=== PATIENT | female | born 1990 | race Caucasian/White ===

== ENCOUNTER 2016-03-28 18:26 | Emergency (ER) | payer OTHER ==
[~2016-03-28] VITALS: Ht 172.7 cm; Wt 71.2 kg
[~2016-03-28 18:26] MED LIST: ALBU1.25 NEB; BENZ100 PO; IPRA17I INH; LORA-392 PO; MONT10TA4 PO; PRED20 PO; ROBIDM5S PO; SYMB160A INH; VENTAER INH; ZITH250T PO
[2016-03-28 18:40] VITALS: BP 131/96; PULSE 90; RESP 16; TEMP 98.7; O2SAT 100
[2016-03-28] MEDS ORDERED: ORPHENADRINE INJ 60 MG/2 ML AMP IM ONE (19:00)
--- NOTE | 2016-03-28 20:08 | RADHPO ---
EXAM DATE/TIME: 03/28/2016 19:00 [place] COMPARISON: No previous studies available for comparison. INDICATIONS : Pain from fall. MEDICAL HISTORY : None. SURGICAL HISTORY : None. ENCOUNTER: Initial ACUITY: 1 day PAIN SCORE: 7/10 LOCATION: Right clavicle. FINDINGS: Two view examination of the right clavicle demonstrates mildly displaced distal clavicle fracture. No bony destructive changes. CONCLUSION: 1. Mildly displaced distal right clavicle fracture. Gus Pulliam MD on March 28, 2016 at 20:06 Board Certified Radiologist. This report was verified electronically.
[2016-03-28] MEDS ORDERED: PERC5TAB12 PO (20:17)
[2016-03-28] MEDS ORDERED: IBUP800T23 PO (20:28)
--- NOTE | 2016-03-28 20:28 | PD ---
HPI Chief Complaint: Injury Time Seen by Provider: 19:20 Travel History International Travel<30 days: No Contact w/Intl Traveler<30days: No Traveled to known affect area: No History of Present Illness HPI Patient is a 25 year old female who presented to emergency department for evaluation of right clavicle pain. Patient states she thinks she broke her clavicle after she fell onto her shoulder last night. She states it's painful to abduct her right arm. She has swelling above the right clavicle. She reports her pain 5/10 and took ibuprofen approximately 4 hours prior to arrival [facility] Past Medical History Asthma: Yes Anxiety: Yes (PATIENT STATES SHE SUFFERS FROM ANXIETY BUT HAS NEVER BEEN TREATED.) Depression: Yes (PATIENT STATES THAT SHE DAVID EASILY) Cancer: No Cardiovascular Problems: No Diminished Hearing: No Genitourinary: No Musculoskeletal: No Neurologic: No Psychiatric: Yes Reproductive: No Respiratory: Yes (asthma) Immunizations Current: Yes Tetanus Vaccination: < 5 Years Influenza Vaccination: No ?: Not LMP: 03/10/16 : 0 Para: 0 Miscarriage: 0 : 0 Past Surgical History Oral Surgery: Yes ("wisdom teeth") Social History Alcohol Use: Yes ("drink beer every day") Tobacco Use: No Substance Use: No Allergies-Medications (Allergen,Severity, Reaction): Coded Allergies: No Known Allergies (Verified , 03/28/16) Reported Meds & Prescriptions Reported Meds & Active Scripts Active No Active Prescriptions or Reported Medications Review of Systems Except as stated in HPI: all other systems reviewed are Neg Musculoskeletal: Positive: Myalgias, Arthralgias, Limited ROM, Edema Physical Exam Narrative GENERAL: Well-nourished, well-developed patient. SKIN: Warm and dry. HEAD: Normocephalic. EYES: No scleral icterus. No injection or drainage. NECK: Supple, trachea midline. No JVD or lymphadenopathy. CARDIOVASCULAR: Regular rate and rhythm without murmurs, gallops, or rubs. RESPIRATORY: Breath sounds equal bilaterally. No accessory muscle use. GASTROINTESTINAL: Abdomen soft, non-tender, nondistended. MUSCULOSKELETAL: No cyanosis, edema noted in the right supraclavicular area, decreased abduction of right arm. Positive radial pulse, persistent 3 second capillary refill. Tenderness to palpation right clavicle. BACK: Nontender without obvious deformity. No CVA tenderness. Data Data Last Documented VS Vital Signs Date Time Temp Pulse Resp B/P Pulse Ox O2 Delivery O2 Flow Rate FiO2 03/28/16 18:40 98.7 90 16 131/96 100 Orders Clavicle (03/28/16 ) Orphenadrine Inj (Norflex Inj) (03/28/16 19:00) Support Splint (03/28/16 20:16) MDM Medical Decision Making Medical Screen Exam Complete: Yes Emergency Medical Condition: Yes Interpretation(s) Vital Signs Date Time Temp Pulse Resp B/P Pulse Ox O2 Delivery O2 Flow Rate FiO2 03/28/16 18:40 98.7 90 16 131/96 100 Differential Diagnosis Fracture versus sprain versus strain versus dislocation versus other Narrative Course Patient is a 25-year-old female who presents emergency department for evaluation of a possible right clavicle fracture after falling onto her right shoulder last night. Patient is neurovascularly intact. Imaging revealed a mildly displaced distal right clavicle fracture. Patient will be placed in a sling. She will be provided with a prescription for pain medication. Patient is to follow-up with orthopedic surgeon, mandatory referral has been made orthopedic surgeon, patient does not have health insurance at this time. Patient is encouraged to return to emergency department for new or worsening symptoms or if she is unable to follow up with specialist. Patient verbalized understanding of instructions. Patient is stable for discharge. Diagnosis Primary Impression: Closed fracture of distal clavicle Qualified Code: S42.031A - Closed displaced fracture of acromial end of right clavicle, initial encounter Referrals: Roby Cueto MD 3 days Orthopaedic Surgeon 3 days Patient Instructions: Clavicle Fracture (ED), General Instructions Additional Instructions: Follow-up with orthopedic surgeon Take medications as directed, do not drive or operate heavy machinery while taking narcotic pain medications Keep right arm and splint Range of motion exercises for right elbow Return to emergency department for any new or worsening symptoms Med/Other Pt SpecificInfo: Prescription(s) given Scripts Ibuprofen 800 Mg [id number] Mg PO Q6HR PRN (PAIN) 10 Days Ref 0 Prov:Priya Rocha 03/28/16 Oxycodone-Acetaminophen (Percocet)5-325 mg Tab1 Tab PO Q6H PRN (PAIN) #15 TAB Ref 0 Prov:Bib Goel MD 03/28/16 Disposition: 01 DISCHARGE HOME Condition: Stable Priya Rocha Mar 28, 2016 20:28
[2016-03-28 20:37] VITALS: BP 128/92
== END 2016-03-28 20:39 | disposition home or self-care (01) ==
LOC: PHED 18:26 → PHEFT 20:39
DX: S42.031A Displaced fracture of lateral end of right clavicle, initial encounter for closed fracture (principal); J45.909 Unspecified asthma, uncomplicated; W19.XXXA Unspecified fall, initial encounter; Y99.8 Other external cause status
CPT/HCPCS: 73000; 96372; 99283; J2360